=== PATIENT | male | born 1940 | race Caucasian/White ===

== ENCOUNTER 2016-08-20 10:19 | Emergency (ER) | payer BC ==
[~2016-08-20 10:19] MED LIST: ADVAIR250 INH; ALTA2.5 PO; AMARYL4 PO; COREG6 PO; CRESTOR40 MG PO; EFFIENT10 PO; FLONASE NAS; FOLIC ACID400 MC1 PO; HALF81 PO; IMDUR30 PO; IMDUR60 PO; JANUVIA100 MG PO; KLONO5 PO; L40 PO; LANTUS SC; LOFIB160 PO; MICRO-K10 MEQ PO; MULTIPLE VIT PO; NITROSTAT0.4 MG SL; PLAVIX PO; PRILO PO; PROVHFA INH; SPIRIVA INH; TRAVATAN OPH; VICTOZA PO; VITC500 PO; XALAT OPH
[2016-08-20 10:58] LABS: BASOPHILS 0.2 %; BASOPHILS ABSOLUTE 0.02 10/3/uL (0.0-0.16); EOSINOPHILS 2.8 %; EOSINOPHILS ABSOLUTE 0.24 10/3/uL (0.0-0.53); HEMATOCRIT 42.8 % (40.0-51.0); HEMOGLOBIN 14.2 g/dL (13.6-17.8); IMMATURE GRANULOCYTES 0.1 %; IMMATURE GRANULOCYTES ABSOLUTE 0.01 10/3/uL (0.0-0.11); LYMPHOCYTES 22.8 %; LYMPHOCYTES ABSOLUTE 1.93 10/3/uL (0.67-4.30); MEAN CORPUS HGB CONC 33.2 g/dL (32.0-36.0); MEAN CORPUSCULAR HEMOGLOB 31.3 pg (26.0-34.0); MONOCYTES 9.3 %; MONOCYTES ABSOLUTE 0.79 10/3/uL (0.21-1.20); NEUTROPHILS 64.8 %; NEUTROPHILS ABSOLUTE 5.48 10/3/uL (2.02-8.40); PLATELET COUNT 137 10/3/uL (150-400); RBC DISTRIBUTION WIDTH 14.3 % (12.0-16.0); RED CELL COUNT 4.54 10/6/uL (4.7-6.1); WHITE BLOOD CELLS 8.5 10/3/uL (4.5-10.5)
[2016-08-20 11:01] LABS: MANUAL DIFF NO %; MEAN CORPUSCULAR VOLUME 94.3 fL (80-100)
[2016-08-20 11:11] LABS: INTERNATIONAL NORMAL RATI 1.2 UNITS (-); PARTIAL THROMBO TIME 26.8 SEC (22.5-37.2); PROTIME (NOT ORD) 14.8 SEC (12.0-14.5)
[2016-08-20 11:13] LABS: BUN (BLOOD UREA NITROGEN) 16 MG/DL (6-23); CALCIUM, SERUM 8.2 MG/DL (8.5-10.4); CHEST PAIN PROFILE TAT 0 Hrs 19 Mins; CHLORIDE, SERUM 103 MMOL/L (96-112); CO2 (CARBON DIOXIDE) 27 MMOL/L (24-34); CREATININE 1.57 MG/DL (0.70-1.30); GFR AFRICAN AMERICAN 50 ML/MIN (>=60); GFR NON AFRICAN AMERICAN 43 ML/MIN (>=60); GLUCOSE, SERUM 144 MG/DL (60-99); POTASSIUM, SERUM 4.4 MMOL/L (3.5-5.3); SODIUM, SERUM 141 MMOL/L (135-148); TROPONIN I 0.04 NG/ML (<0.05)
[2016-08-20 11:15] LABS: ASCORBIC ACID (UR NOT ORDER) 40 (NEG); BILIRUBIN, URINE NEGATIVE (NEG); ER URINALYSIS TAT 0 Hrs 09 Mins; KETONE, URINE NEGATIVE (NEG); LEUKOCYTE ESTERASE(NOT OR NEG (NEG); NITRITE (URINE) NEG (NEG); WBC (NOT ORDERED) (RFLEX) 5 (0-5)
[2016-10-06] MEDS ORDERED: MULTIPLE VIT PO (09:55)
[2016-10-06] MEDS ORDERED: VITC500 PO (09:55)
[2016-10-06] MEDS ORDERED: BREO ELLIPTA INH (09:56)
[2016-10-06] MEDS ORDERED: SPIRIVA RESPIMAT INH (09:57)
[2016-10-06] MEDS ORDERED: VENTOLIN HFA INH (09:57)
[2016-10-06] MEDS ORDERED: TRULICITY0.75 MG/0. SQ (10:01)
[2016-10-06] MEDS ORDERED: GLUCPH PO (10:04)
[2016-10-06] MEDS ORDERED: SPIRO25 PO (10:04)
[2016-10-06] MEDS ORDERED: SINGULAIR1 PO (10:05)
[2016-10-06] MEDS ORDERED: CLARIT10 PO (10:05)
== END 2016-08-20 12:17 | disposition home or self-care (01) ==
LOC: ER 10:19
PROVIDERS: Emergency Medicine
DX: K57.92 Diverticulitis of intestine, part unspecified, without perforation or abscess without bleeding (principal); J44.9 Chronic obstructive pulmonary disease, unspecified; I10 Essential (primary) hypertension; E11.9 Type 2 diabetes mellitus without complications; Z95.5 Presence of coronary angioplasty implant and graft; Z95.0 Presence of cardiac pacemaker; Z79.4 Long term (current) use of insulin; Z79.82 Long term (current) use of aspirin; Z79.899 Other long term (current) drug therapy
CPT/HCPCS: 71010; 74176; 80048; 81001; 83690; 83735; 84484; 85025; 85610; 85730; 93005; 99285

== ENCOUNTER 2016-10-09 06:40 | Day surgery (SDC) | payer BC ==
--- NOTE | ~2016-10-09 | EGD ---
EGD REPORT [facility] [address] [address] NAME: KYLEIGH STATON : [birth year] STATUS : REG [facility]#: [id number] AGE: 75 ADM/REG DATE : 10/09/16 MR#: [id number] REPORT SERV DATE: 10/09/16 DICTATED BY: QUINNNICHOLAS ARIZMENDI DATE: 10/09/16 REPORT STATUS : Draft TRANSCRIBED BY: [employer] DATE: 10/09/16 [facility] Patient Name: Kyleigh Staton Date of : 1940 Attending MD: NICHOLAS BALL, Procedure Date No Time: 10/09/2016 Procedure: Upper GI endoscopy Indications: Heartburn Referring MD: ARELY DALEY Medicines: Monitored Anesthesia Care Complications: No immediate complications. Estimated blood loss: None. Procedure: Pre-Anesthesia Assessment: - ASA Grade Assessment: III - A patient with severe systemic disease. After obtaining informed consent, the endoscope was passed under direct vision. Throughout the procedure, the patient's blood pressure, pulse, and oxygen saturations were monitored continuously. The GIF [id number] was introduced through the mouth, and advanced to the second part of duodenum. The upper GI endoscopy was accomplished without difficulty. The patient tolerated the procedure well. Findings: The esophagus was normal. Patchy mild inflammation characterized by erosions was found in the gastric antrum. Biopsies were taken with a cold forceps for histology. Verification of patient identification for the specimen was done. Estimated blood loss was minimal. The exam of the stomach was otherwise normal. The cardia and gastric fundus were normal on retroflexion. Scalloped mucosa was found in the 2nd part of the duodenum. Biopsies were taken with a cold forceps for histology. Verification of patient identification for the specimen was done. Estimated blood loss was minimal. The exam of the duodenum was otherwise normal. Impression: - Normal esophagus. - Gastritis. Biopsied. - Duodenal mucosal changes seen, rule out celiac disease. Biopsied. Recommendation: - Patient has a contact number available for emergencies. The signs and symptoms of potential delayed complications were discussed with the patient. Return to EGD REPORT [address] [address] NAME: KYLEIGH STATON MELA : [birth year] STATUS : REG [facility]#: [id number] AGE: 75 ADM/REG DATE : 10/09/16 MR#: [id number] REPORT SERV DATE: 10/09/16 DICTATED BY: NICHOLAS BALL DATE: 10/09/16 REPORT STATUS : Draft TRANSCRIBED BY: [employer] DATE: 10/09/16 normal activities tomorrow. Written discharge instructions were provided to the patient. - Return to previous diet. - Continue present medications. - Await pathology results. Procedure Code(s): --- Professional --- 25086, Esophagogastroduodenoscopy, flexible, transoral; with biopsy, single or multiple Diagnosis Code(s): --- Professional --- K29.70, Gastritis, unspecified, without bleeding K31.9, Disease of stomach and duodenum, unspecified R12, Heartburn CPT copyright 2013 [employer]. All rights reserved. The codes documented in this report are preliminary and upon network security engineer review may be revised to meet current compliance requirements. NICHOLAS BALL, 10/09/2016 8:57 AM Number of Addenda: 0 Note Initiated On: 10/09/2016 8:08 AM Scope Withdrawal Time 0 hours 0 minutes 0 seconds [address] [place], [place] [id number]
--- NOTE | ~2016-10-09 | EGD ---
EGD REPORT [facility] [address] [address] NAME: KYLEIGH STATON : [birth year] STATUS : REG [facility]#: [id number] AGE: 75 ADM/REG DATE : 10/09/16 MR#: [id number] REPORT SERV DATE: 10/09/16 DICTATED BY: QUINNNICHOLAS DATE: 10/09/16 REPORT STATUS : Draft TRANSCRIBED BY: [employer] DATE: 10/09/16 [facility] Patient Name: Kyleigh Staton Date of : 1940 Attending MD: NICHOLAS BALL, Procedure Date No Time: 10/09/2016 Procedure: Colonoscopy Indications: High risk colon cancer surveillance: Personal history of colonic polyps Referring MD: ARELY DALEY Medicines: Monitored Anesthesia Care Complications: No immediate complications. Estimated blood loss: None. Procedure: Pre-Anesthesia Assessment: - ASA Grade Assessment: III - A patient with severe systemic disease. After I obtained informed consent, the scope was passed under direct vision. Throughout the procedure, the patient's blood pressure, pulse, and oxygen saturations were monitored continuously. The CF [id number] was introduced through the anus and advanced to the cecum, identified by appendiceal orifice and ileocecal valve. The colonoscopy was performed without difficulty. The patient tolerated the procedure well. The quality of the bowel preparation was adequate. Findings: Six sessile polyps were found in the transverse colon. The polyps were 6 to 20 mm in size. These polyps were removed with a hot snare. Resection and retrieval were complete. Verification of patient identification for the specimen was done. Estimated blood loss was minimal. One hemostatic clip was successfully placed from an oozing polypectomy site.. Bleeding had stopped at the end of the maneuver. A sessile polyp was found in the cecum. The polyp was 10 mm in size. The polyp was removed with a hot snare. Resection and retrieval were complete. Verification of patient identification for the specimen was done. Estimated blood loss was minimal. Three sessile polyps were found in the ascending colon. The polyps were 5 to 10 mm in size. These polyps were removed with a hot snare. Resection and retrieval were complete. Verification of patient identification for the specimen was done. Estimated blood loss was minimal. Two sessile polyps were found in the descending colon. The polyps were 3 to 4 mm in size. These polyps were removed with a cold snare. Resection and retrieval were complete. Verification of patient identification for the specimen was done. Estimated blood loss was minimal. EGD REPORT [address] [address] NAME: SANJEEVKYLEIGH MELA : [birth year] STATUS : REG [facility]#: [id number] AGE: 75 ADM/REG DATE : 10/09/16 MR#: [id number] REPORT SERV DATE: 10/09/16 DICTATED BY: NICHOLAS BALL DATE: 10/09/16 REPORT STATUS : Draft TRANSCRIBED BY: [employer] DATE: 10/09/16 A sessile polyp was found in the descending colon. The polyp was 15 mm in size. The polyp was removed with a hot snare. Resection and retrieval were complete. Verification of patient identification for the specimen was done. Estimated blood loss was minimal. A sessile polyp was found in the rectum. The polyp was 5 mm in size. The polyp was removed with a cold snare. Resection and retrieval were complete. Verification of patient identification for the specimen was done. Estimated blood loss was minimal. Multiple small-mouthed diverticula were found in the sigmoid colon and in the descending colon. The exam was otherwise without abnormality. The perianal exam was abnormal. Findings include skin tags. Impression: - Six 6 to 20 mm polyps in the transverse colon. Resected and retrieved. Clip was placed. - One 10 mm polyp in the cecum. Resected and retrieved. - Three 5 to 10 mm polyps in the ascending colon. Resected and retrieved. - Two 3 to 4 mm polyps in the descending colon. Resected and retrieved. - One 15 mm polyp in the descending colon. Resected and retrieved. - One 5 mm polyp in the rectum. Resected and retrieved. - Diverticulosis in the sigmoid colon and in the descending colon. - The examination was otherwise normal. Recommendation: - Return to previous diet. - Continue present medications. - Await pathology results. - Repeat colonoscopy in 2 years for surveillance. Procedure Code(s): --- Professional --- 50578, Colonoscopy, flexible, proximal to splenic flexure; with removal of tumor(s), polyp(s), or other lesion(s) by snare technique Diagnosis Code(s): --- Professional --- K62.1, Rectal polyp D12.4, Benign neoplasm of descending colon D12.2, Benign neoplasm of ascending colon D12.0, Benign neoplasm of cecum D12.3, Benign neoplasm of transverse colon K57.30, Diverticulosis of large intestine without perforation or abscess without bleeding Z86.010, Personal history of colonic polyps EGD REPORT [address] [address] NAME: SANJEEVKYLEIGH MELA : [birth year] STATUS : REG [facility]#: [id number] AGE: 75 ADM/REG DATE : 10/09/16 MR#: [id number] REPORT SERV DATE: 10/09/16 DICTATED BY: NICHOLAS BALL DATE: 10/09/16 REPORT STATUS : Draft TRANSCRIBED BY: [employer] DATE: 10/09/16 CPT copyright 2013 [employer]. All rights reserved. The codes documented in this report are preliminary and upon certified medical coder review may be revised to meet current compliance requirements. NICHOLAS BALL, 10/09/2016 9:02 AM Number of Addenda: 0 Note Initiated On: 10/09/2016 8:06 AM Scope Withdrawal Time 0 hours 26 minutes 2 seconds [address] [place] [address]
[~2016-10-09 06:40] MED LIST changes: +BREO ELLIPTA INH; +CLARIT10 PO; +GLUCPH PO; +SINGULAIR1 PO; +SPIRIVA RESPIMAT INH; +SPIRO25 PO; +TRULICITY0.75 MG/0. SQ; +VENTOLIN HFA INH
== END 2016-10-09 23:59 | disposition home or self-care (01) ==
LOC: DMU 06:40
PROVIDERS: Internal Medicine Gastroenterology
PROC: 0DBM8ZZ Excision of Descending Colon, Via Natural or Artificial Opening Endoscopic (ICD-10-PCS; 2016-10-09)
PROC: 0DBK8ZZ Excision of Ascending Colon, Via Natural or Artificial Opening Endoscopic (ICD-10-PCS; 2016-10-09)
PROC: 0DBH8ZZ Excision of Cecum, Via Natural or Artificial Opening Endoscopic (ICD-10-PCS; 2016-10-09)
PROC: 0DB98ZX Excision of Duodenum, Via Natural or Artificial Opening Endoscopic, Diagnostic (ICD-10-PCS; 2016-10-09)
PROC: 0DB68ZX Excision of Stomach, Via Natural or Artificial Opening Endoscopic, Diagnostic (ICD-10-PCS; 2016-10-09)
PROC: 0DBL8ZZ Excision of Transverse Colon, Via Natural or Artificial Opening Endoscopic (ICD-10-PCS; principal; 2016-10-09 07:30)
PROC: 0DBP8ZZ Excision of Rectum, Via Natural or Artificial Opening Endoscopic (ICD-10-PCS; 2016-10-09 07:30)
DX: Z12.11 Encounter for screening for malignant neoplasm of colon (principal); D12.3 Benign neoplasm of transverse colon; D12.0 Benign neoplasm of cecum; D12.2 Benign neoplasm of ascending colon; D12.4 Benign neoplasm of descending colon; D12.8 Benign neoplasm of rectum; K57.30 Diverticulosis of large intestine without perforation or abscess without bleeding; K29.70 Gastritis, unspecified, without bleeding; K31.9 Disease of stomach and duodenum, unspecified; R12 Heartburn; J44.9 Chronic obstructive pulmonary disease, unspecified; I10 Essential (primary) hypertension; K21.9 Gastro-esophageal reflux disease without esophagitis; Z86.010 Personal history of colon polyps; Z79.51 Long term (current) use of inhaled steroids; Z95.5 Presence of coronary angioplasty implant and graft; Z79.82 Long term (current) use of aspirin; Z79.899 Other long term (current) drug therapy; Z79.84 Long term (current) use of oral hypoglycemic drugs
CPT/HCPCS: 82962; 88305